=== PATIENT | female | born 1980 | race Caucasian/White ===

== ENCOUNTER 2020-04-19 13:05 | Outpatient (REF) | payer BC, SELFPAY ==
[2020-04-19 13:22] LABS: Abs Immature Grans 0.03 10^3/uL (0.0-0.06); Absolute Basophil Count 0.03 10^3/uL (0.0-0.2); Absolute Eosinophil Count 0.24 10^3/uL (0.0-0.7); Absolute Lymphocyte Count 2.05 10^3/uL (1.2-3.4); Absolute Monocyte Count 0.55 10^3/uL (0.1-0.8); Absolute Neutrophil Count 6.22 10^3/uL (1.2-6.7); Basophils % 0.3; Eosinophils % 2.6; HCT 42.5 % (36.0-46.0); HGB 13.9 g/dL (11.2-15.7); Immature Grans % 0.3; Lymphocytes % 22.5; MCH 29.5 pg (27.0-33.0); MCHC 32.7 % (32.0-36.0); MCV 90.2 fL (80-95); MPV 10.8 fL (8.0-11.0); Neutrophils % 68.3; Nucleated RBC 0 %; Platelet Count 253 10^3/uL (130-400); RBC 4.71 10^6/uL (3.93-5.22); RDW 13.1 % (11.7-14.6); RDW-SD 42.9 fL; WBC 9.12 10^3/uL (4.4-10.8)
[2020-04-19 13:33] LABS: Calculated LDL 71 mg/dL (<100); Cholesterol 153 mg/dL (<200); Glucose 93 mg/dL (74-106); HDL Cholesterol 58 mg/dL (40-60); TSH (W/Ref FT4) 1.56 uIU/mL (0.36-3.74); Triglyceride 124 mg/dL (<150)
== END 2020-04-19 13:25 ==
LOC: LBN 13:05
PROVIDERS: PCP Family Medicine; Visit Provider Family Medicine
DX: E78.5 Hyperlipidemia, unspecified (principal); E03.9 Hypothyroidism, unspecified; R53.83 Other fatigue; R73.9 Hyperglycemia, unspecified
CPT/HCPCS: 80061; 82947; 84443; 85025

== ENCOUNTER 2020-08-07 16:16 | Outpatient (REF) | payer BC, SELFPAY ==
[2020-08-07 15:08] LABS: TSH (W/Ref FT4) 1.49 uIU/mL (0.36-3.74)
== END 2020-08-07 16:36 ==
LOC: LBN 16:16
PROVIDERS: PCP Family Medicine; Visit Provider Family Medicine
DX: E03.9 Hypothyroidism, unspecified (principal)
CPT/HCPCS: 84443

== ENCOUNTER 2020-08-13 09:57 | Outpatient (CLI) | payer BC, SELFPAY ==
--- NOTE | 2020-09-27 08:54 | W.CARDEVENT ---
Date of service: 09/27/20 Time of Service: 08:54 Cardiac Event Recorder Referring Provider:: Helga Indications:: palps Cardiac Event Note: This is a30-day event recorder ordered for indication of palpitations. ?Patient was in normal sinus rhythm for the majority of the recording with an average heart rate of 79 bpm. ?There were no serious or critical events recorded. ?There were 5 patient triggered events that were associated with sinus rhythm and sinus tachycardia. ?There were no episodes of atrial fibrillation, no pauses greater than 3 seconds and no evidence of high degree heart block.
== END 2020-08-13 10:17 ==
PROVIDERS: PCP Family Medicine; Visit Provider Family Medicine
CPT/HCPCS: 93270

== ENCOUNTER 2020-10-31 00:52 | Outpatient (CLI) | payer BC, SELFPAY ==
--- NOTE | 2020-10-31 12:16 | DI.US_ITS ---
APPROVED REPORT EXAM: Comprehensive 2D, Doppler, and color-flow Echocardiogram Patient Location: Out-Patient Histology Technologist: Rosmery Mcallister RDCS (AE) Indications: SOB, Palpitations Other Information Study Quality: Good Conclusion Left Ventricle : The left ventricle is normal size. The left ventricular systolic function is normal. The left ventricular ejection fraction is within the normal range. There is normal left ventricular wall thickness. There is normal LV segmental wall motion. The left ventricular diastolic function is normal. LVEF is 60%. Right Ventricle : The right ventricle is normal size. The right ventricular systolic function is norm al. Atria : The left atrium size is normal. The right atrium size is normal. Valves: There are no hemodynamically significant valvular lesions. Great Vessels : The aortic root is normal in size. The ascending aorta is mildly dilated. Aortic arch is normal in caliber. IVC is normal in size and collapses >50% with inspiration. Please see remainder of study for further details Wall motion Left Ventricle The left ventricle is normal size. The left ventricular systolic function is normal. The left ventric ular ejection fraction is within the normal range. There is normal left ventricular wall thickness. T here is normal LV segmental wall motion. The left ventricular diastolic function is normal. There is no ventricular septal defect visualized. LVEF is 60%. Right Ventricle The right ventricle is normal size. The right ventricular systolic function is normal. Atria The left atrium size is normal. The right atrium size is normal. The interatrial septum is intact wit h no evidence for an atrial septal defect. Aortic Valve The aortic valve is normal in structure. Aortic valve is trileaflet. There is no aortic valvular sten osis. No aortic regurgitation is present. Mitral Valve The mitral valve is normal in structure. No evidence of mitral valve stenosis. Trace mitral regurgita tion. Tricuspid Valve The tricuspid valve is normal in structure. There is no tricuspid valve stenosis. Trace tricuspid reg urgitation. Pulmonic Valve The pulmonary valve is normal in structure. There is no pulmonic valvular stenosis. Trace pulmonic re gurgitation. Great Vessels The aortic root is normal in size. The ascending aorta is mildly dilated. Aortic arch is normal in ca liber. IVC is normal in size and collapses >50% with inspiration. Pericardium There is no pericardial effusion. 2D Dimensions IVSD d PLAX 0.79 cm F: 0.6-1.0 LV Vol A2C d MOD 105.6 mL LVPW d PLAX 0.80 cm F: 0.6 - 1.0 LV Vol A4C d MOD 149.7 mL LVID d PLAX 4.97 cm F: 3.8 - 5.2 LA vol/ BSA A2C s A-L 20.7 mL/m2 LVDs 3.25 cm F: 2.2 - 3.5 LA vol/ BSA A4C s A-L 23.5 mL/m2 Ao Root d 3.55 cm F: 2.7 - 3.3 LA Vol/ BSA Biplane s A-L 23.3 mL/m2 RA Area A4C 11.89 cm2 LA Area A4C s MOD 18.43 cm2 RA Vol/ BSA A4C s A-L 11.5 mL/m2 LA Area A2C s MOD 16.37 cm2 Ao Asc Diam d 3.73 cm F: 2.3 - 3.1 LV EF A4C MOD 58.6 % LV EF Teichholz 63.3 % LV EF A2C MOD 61.7 % LVEF (Salguero's) 60.28 % F: 54 - 74 LV EF Biplane MOD 60.3 % LV Volume 91.21 mL F: 46 - 106 SV 76.02 mL LV Volume Index 40.71 mL/m2 F: 29 - 61 SV Index 33.95 mL/m2 LV Vol Biplane MOD 126.1 mL FS 34.40 % M-Mode TAPSE 2.77 cm (M/F) >1.7 LV Diastology MV E' medial 0.112 (>0.07 m/s) E/A Ratio 1.3 LV E/e MED 8.25 (<14) MV E Vmax 0.93 (0.4-1.3 m/s) MV E' lateral 0.133 (>0.1 m/s) MV A Vmax 0.70 (0.4-1.3 m/s) LV E/e LAT 7.00 (<14) MV E/A Ratio 1.32 MV E/E' medial 8.28 MV E/E' lateral 7.00 Aortic Valve LVOT Area 3.88 cm2 AoV Area Vmax 1.85 cm2 LVOT Vmax 0.91 m/s AoV Area/ BSA (Vmax) 0.83 cm2/m2 LVOT Mean Clay. 0.60 m/s JEROMY Mean Clay. 1.84 cm2 LVOT Peak Grad 3.3 mmHg JEROMY Mean Clay. Index 0.82 cm2/m2 LVOT Mean Grad 1.7 mmHg LVOT VTI 0.196 m LVOT Diam s 2.20 cm AoV Vmax 1.90 m/s Velocity Ratio 0.47 AoV Mean Clay. 1.26 m/s AoV Peak Grad 14.5 mmHg LVOT SV 76.08 mL AoV Mean Grad 7.2 mmHg AoV VTI 0.366 m AoV Area VTI 2.08 cm2 AoV Area/ BSA (VTI) 0.93 cm/m2 Mitral Valve MV DT 217 (160-240 msec) MV PHT 63 msec MV Area PHT 3.50 cm2 MV VTI 0.274 m MV Area VTI 2.78 (4.0-6.0 cm2) Pulmonary Valve PV Vmax 1.03 (0.5-1.5 m/s) RVOT Peak Gr. 2.46 mmHg PV Peak Grad 4.3 mmHg RVOT Mean Gr. 1.25 mmHg PV Mean Grad 2.3 mmHg RVOT VTI 0.161 m PV VTI 0.201 m RVOT Vmax 0.78 m/s Tricuspid Valve TR Peak Grad 14.9 mmHg TR Vmax 1.93 m/s RA Pressure 3.00 mmHg RVSP (TR) 17.9 mmHg
== END 2020-10-31 01:12 ==
PROVIDERS: PCP Family Medicine; Visit Provider Family Medicine
DX: R00.2 Palpitations (principal); R06.02 Shortness of breath; I77.810 Thoracic aortic ectasia
CPT/HCPCS: 93306

== ENCOUNTER 2020-11-19 11:37 | Outpatient (CLI) | payer BC, SELFPAY ==
--- NOTE | 2020-11-19 11:15 | DI.RAD_ITS ---
EXAM: XR SHOULDER RT COMPLETE 2+V CLINICAL HISTORY: right shouider pain. TECHNIQUE: 2D digital imaging was performed. COMPARISON: No exams were available for comparison FINDINGS: BONES: No acute fracture is present. No bony destructive lesion is seen. JOINTS: No dislocation present. SOFT TISSUE: Normal. IMPRESSION: Unremarkable radiographs of the right shoulder. DATA REPOSITORY: RADIATION DOSE DELIVERED:
== END 2020-11-19 11:38 | disposition home or self-care (01) ==
LOC: DIORS 11:37
PROVIDERS: PCP Family Medicine; Referring Provider Family Medicine; Visit Provider Student in an Organized Health Care Education/Training Program
DX: M25.511 Pain in right shoulder (principal)
CPT/HCPCS: 73030

== ENCOUNTER 2020-12-10 01:49 | Outpatient (CLI) | payer BC, SELFPAY ==
--- NOTE | 2020-12-10 08:35 | DI.MRI_ITS ---
Exam(s) MR UPPER JOINT RT WO EXAM: MR UPPER JOINT RT WO CLINICAL HISTORY: R SHOULDER PAIN,BICEPS TENDINITIS,RT ROTATOR CUFF TENDINITIS,M75.21,M75.81. TECHNIQUE: Multiplanar multisequence MRI was performed. COMPARISON: Plain films dated 19 November 2020 FINDINGS: Exam is somewhat limited by patient body habitus. BONES: There is no fracture or contusion pattern. JOINTS: The acromioclavicular joint shows minimal spurring.. The glenohumeral joint is normal. TENDONS: Supraspinatus: Unremarkable. Infraspinatus: Normal thickness. Some high signal within the fibers could indicate partial tear vers us tendonitis. Subscapularis: Unremarkable. Teres Minor: Unremarkable. Biceps and [place]: Unremarkable. MUSCLES: Unremarkable. GLENOID LABRUM: Unremarkable on this noncontrast examination. SOFT TISSUES: Unremarkable. LIGAMENTS: Unremarkable. OTHER: Subacromial and subdeltoid bursae are unremarkable. IMPRESSION: Tendinitis versus partial tear of the infraspinatus tendon. DATA REPOSITORY:
== END 2020-12-10 02:09 ==
PROVIDERS: PCP Family Medicine; Visit Provider Student in an Organized Health Care Education/Training Program
DX: M75.21 Bicipital tendinitis, right shoulder (principal); M75.81 Other shoulder lesions, right shoulder
CPT/HCPCS: 73221

== ENCOUNTER 2022-03-04 19:00 | Outpatient (REF) | payer BC, SELFPAY | END 2022-03-04 19:01 | disposition home or self-care (01) | LOC: LBN 19:00 | PROVIDERS: PCP Family Medicine; Visit Provider Nurse Practitioner Family | DX: J02.9 Acute pharyngitis, unspecified (principal) | CPT/HCPCS: 87070 ==

== ENCOUNTER 2022-08-13 08:57 | Outpatient (REF) | payer BC, SELFPAY ==
--- NOTE | 2022-08-13 08:45 | PAPFT_PTH ---
PATIENT: Pili Oscar LOC: [facility] U#:[id number] AGE/SX: 41/F ROOM: RE08/13/[address]: Nuno Coe MD : [id number] BED: DIS: 08/13/2022 SPEC #: [id number] RECD: 08/13/22 12:57 STATUS: JULIETA RESunita #: [id number] MARIBELL: 08/13/22 08:[address]: Nuno Coe [facility]PT[facility] Cytology RECD BY: Rosana Barakat Tissues: 1 - CX/ENDOCX FOR PAP SMEARS Procedures: PAP THIN PREP/UVM Screening HPV DNA PROBE Comments: [id number]
== END 2022-08-13 08:58 | disposition home or self-care (01) ==
LOC: LBN 08:57
PROVIDERS: PCP Family Medicine; Visit Provider Family Medicine
DX: Z12.4 Encounter for screening for malignant neoplasm of cervix (principal); Z11.51 Encounter for screening for human papillomavirus (HPV)
CPT/HCPCS: 88142; 87624

== ENCOUNTER 2022-08-17 01:45 | Outpatient (CLI) | payer BC, SELFPAY ==
--- NOTE | 2022-08-17 08:00 | DI.MAMMO_ITS ---
Exam(s) MAMMO SCREENING EXAM: MAMMO SCREENING CLINICAL HISTORY: screening,Z12.39 TECHNIQUE: Bilateral full field digital CC and MLO mammographic images were obtained with 3D tomosyn thesis and utilizing computer aided detection (CAD). COMPARISON: None. FINDINGS: Masses/Architectural Distortion: None seen. Microcalcifications: No suspicious pleomorphic-type are seen. Skin Thickening/Nipple Retraction: None. IMPRESSION: 1. No significant interval change with no specific features of malignancy noted. 2. Unless there is more urgent need, screening mammography is recommended, as per [employer] guidelines. BI-RADS Category 1 - Negative Breast Density - Category B - Scattered areas of fibroglandular density A negative radiographic report should not delay biopsy if a dominant or clinically suspicious mass is present. Up to ten percent of cancers are not identified on mammography. A negative report may reinforce clinical impression. Adenosis and dense breasts may obscure an underlying neoplasm. False positive reports average 6 to 10%. Patient will receive a letter notifying them of these results.
== END 2022-08-17 02:05 ==
LOC: DI 01:45
PROVIDERS: PCP Family Medicine; Visit Provider Family Medicine
DX: Z12.31 Encounter for screening mammogram for malignant neoplasm of breast (principal); R92.8 Other abnormal and inconclusive findings on diagnostic imaging of breast
CPT/HCPCS: 77063; 77067

== ENCOUNTER 2022-08-17 16:16 | Outpatient (CLI) | payer BC, SELFPAY ==
[2022-08-17 16:46] LABS: Calculated LDL 61 mg/dL (<100); Cholesterol 146 mg/dL (<200); Glucose 96 mg/dL (74-106); HDL Cholesterol 45 mg/dL (40-60); TSH (W/Ref FT4) 2.37 uIU/mL (0.36-3.74); Triglyceride 203 mg/dL (<150)
[2022-08-18 18:44] LABS: FSH 5.1 mIU/mL (See Note)
== END 2022-08-17 16:17 | disposition home or self-care (01) ==
LOC: LBO 16:17
PROVIDERS: PCP Family Medicine; Visit Provider Family Medicine
DX: N64.4 Mastodynia (principal); E03.9 Hypothyroidism, unspecified; E78.5 Hyperlipidemia, unspecified; R73.9 Hyperglycemia, unspecified
CPT/HCPCS: 36415; 80061; 82947; 83001; 83002; 84443

== ENCOUNTER 2022-08-29 05:47 | Emergency (ER) | payer BC, SELFPAY ==
[2022-08-29 05:50] VITALS: BP 168/106; PULSE 109; RESP 20; TEMP 36.7; O2SAT 100
[2022-08-29] MEDS: Acetaminophen 500 MG TAB 1000 MG PO (06:05)
[2022-08-29] MEDS: Dexamethasone 10 MG/ML VIAL IM (06:06)
[2022-08-29] MEDS: Ketorolac 30 MG/ML VIAL IM (06:07)
--- NOTE | 2022-08-29 06:13 | ED.GENADUL_ITS ---
Discharge Plan Disposition Patient Disposition: Home Condition: Good Discharge Details Chief Complaint: ThroatFB Clinical Impression: Laryngitis Primary Care Provider: Nuno Coe ED Provider: Onel Pisano Discharge Instructions Instructions: Laryngitis (ED) Additional Instructions: At this time your strep test is negative. Your symptoms are likely from a virus. You have irritation and inflammation of your vocal cords causing laryngitis. Please take 800 mg of Motrin every 6 hours, and 1000 mg of Tylenol every 6 hours. These are the maximum doses. Do this for the next 24 to 48 hours. This will help in the inflammation and pain in your throat. Stay well- hydrated and drink plenty of fluids. If you notice any worsening of your symptoms, or any new symptoms such as vomiting, diarrhea, fever, chills, shortness of breath, chest pain, numbness, weakness, or fainting , please return immediately to the emergency department for reevaluation. Please follow up with your primary care provider as soon as possible for reassessment and reevaluation. As always, it was a pleasure participating in your medical care today. Stand Alone Forms: Work Release Referrals: Nuno Coe MD [Primary Care Provider] - Medical Decision Making This is a 41-year-old female who presents today for evaluation of sore throat. Patient states that it is been going on since last night. She woke up this morning and she had pain with swallowing. She is able to control her secretions well including drink. No gagging. She denies fever. She has not taken any NSAIDs today. Pain is made worse with swallowing. Improved by nothing. She also admits to difficulty talking, as this makes her throat more sore. M demonstrates a well-appearing female, no stridor, no difficulty controlling secretions. Tonsils are minimally enlarged. No signs of respiratory distress whatsoever. Symptoms appear clinically consistent with mild laryngitis. Will give Toradol, Decadron, and Tylenol. Strep test is negative. No indication for antibiotics at this time. Patient appears notably stable. Symptoms inconsistent clinically at this time with retropharyngeal abscess, airway compromise, peritonsillar abscess, or severe tonsillitis. I have extensively reviewed the treatment plan and discharge instructions with the patient and their family. I have addressed all patient concerns at this time. The patient and family was made aware of what symptoms to monitor for that would warrant a return to the emergency department. Discussed the plan with the patient and family, they demonstrate verbal understanding and agreement with our assessment and plan at this time. The documentation in this chart was dictated using [employer] dictation software. Please excuse any dictation errors. HPI General Date/Time Provider Initiated Documentation: 08/29/22 05:48 . HPI Narrative: This is a 41-year-old female who presents today for evaluation of sore throat. Patient states that it is been going on since last night. She woke up this morning and she had pain with swallowing. She is able to control her secretions well including drink. No gagging. She denies fever. She has not taken any NSAIDs today. Pain is made worse with swallowing. Improved by nothing. She also admits to difficulty talking, as this makes her throat more sore. Related Data Allergies Allergy/AdvReac Type Severity Reaction Status Date / Time venlafaxine [From Effexor] AdvReac Severe INCREASED Verified 08/13/22 08:19 MIGRAINES General Stated Complaint: ThroatFB STACY: 4 Review of Systems All systems reviewed & are unremarkable except as noted in HPI and below PFSH All Active Problems (Updated 08/29/22 @ 06:18 by Onel Pisano DO) Laryngitis (Acute) Breast tenderness (Acute) Fissure in ano (Acute) Morbid obesity (Acute) discussed bariatric procedures to help Anxiety (Chronic) Medical History Biceps tendinitis of right shoulder Elevated blood pressure reading Fatigue Headache will try meds and refer to Dariusz, our behavioral health specialist Insomnia Palpitations with history of ectopic (06/02/11) Right rotator cuff tendonitis Shoulder pain, right Vaginal discharge (06/12/15) Surgical History , Ectopic Family History Mother Hyperlipidemia Father , 62 No problems noted. Sister Hyperlipidemia Brother Hyperlipidemia Brother Hyperlipidemia Son No problems noted. Daughter No problems noted. Maternal Grandfather , 81 No problems noted. Paternal Grandfather , 42 Heart attack Maternal Grandmother , 79 No problems noted. Paternal Grandmother , 68 Heart disease Social History Smoking/Tobacco Use Status: Former Tobacco Use Smokeless tobacco user: chewing tobacco Second Hand Exposure: Yes Smoking risk assessment performed?: Yes Alcohol Intake: current Alcohol Intake frequency: a few times a month Alcohol type: beer Drug use: Never Substance use type: does not use Caregiver/Support person: No Household members: spouse and children Housing: house Communication Needs: None Do you need help understanding health information?: Never Pets and animals: Yes Pets and animals: cat(s) and dog(s) Sexually active: Yes Do you think of yourself as: straight/heterosexual Current gender identity: female What is your relationship status?: How often do you talk on the phone with friends or family?: three or more times per week How often do you get together with friends or relatives?: twice per week How often do you attend hoahaoism or baptist services?: decline to answer Do you belong to any clubs or organized social groups?: no Panel score (0-1 are the most socially isolated patients): 2 What type of physical activity do you participate in: walking Duration: 45-60 minutes/day Frequency: daily Nikole/Baptist: No preference Special nikole needs: No Seatbelt use: always Helmet use: Yes Helmet use: always Drive intox or ride w/intox 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 3.ENT: Atraumatic external nose and ears. Moist MM. Neck: Symmetric, trachea midline, No thyromegaly. Mild erythema and enlargement of the tonsils, tonsil grading is a 2+ positioning. No evidence of peritonsillar abscess, airway compromise, stridor, or lesions. No swelling in the neck. No evidence of Ludewig's angina. 4.CVS: +S1/S2, No murmurs or gallops. Peripheral pulses 2+ and equal in all extremities. Brisk capillary refill in all extremities. 5.RESP: Unlabored respiratory effort. Clear to auscultation bilaterally. No wheezes rales or rhonchi 6.GI: Soft, Nontender/Nondistended, No hepatosplenomegaly. No guarding or rebound. 7.MSK: Normocephalic/Atraumatic, Extremities w/o deformity or ttp No cyanosis or clubbing, Normal movement of all extremities 8.Skin: Warm, Dry. No rashes or lesions. 9.Neuro: powerhouse engineer II-XII grossly intact. Sensation grossly intact, no focal neurologic deficits. 10.Psych: (AAO) x3. Appropriate mood and affect Course Vital Signs Vital signs: Vital Signs Temperature 36.7 C 08/29/22 05:50 Pulse 109 H 08/29/22 05:50 Respiratory Rate 20 08/29/22 05:50 Blood Pressure 168/106 H 08/29/22 05:50 Pulse Oximetry 100 08/29/22 05:50 Temperature 36.7 C 08/29/22 05:50 Temperature Source Oral 08/29/22 05:50 Pulse 109 H 08/29/22 05:50 Respiratory Rate 20 08/29/22 05:50 Respiratory Effort 08/29/22 05:59 Respiratory Pattern Normal 08/29/22 05:59 Blood Pressure 168/106 H 08/29/22 05:50 Blood Pressure Position Sitting 08/29/22 05:50 Pulse Oximetry 100 08/29/22 05:50 Oxygen Delivery Method Room Air 08/29/22 05:50 Oxygen Flow Rate 0 08/29/22 05:50 End Tidal Co2 9 08/29/22 05:50 Lab/Test Results Lab/Test Results: 08/29/22 06:05 Pharynx Group A Streptococcus Culture - Pending POC Strep Test-KATHERYN(Rapid) Start: 08/29/22 05:56 Freq: .Rapid Strep Test Status: Active Protocol: Document 08/29/22 06:05 N.SCRD (Rec: 08/29/22 06:05 N.SCRD [id number]) Strep test-KATHERYN(Rapid)-POC POC-Strep test-KATHERYN (Rapid) Negative POC-Strep test-KATHERYN (Rapid) Negative
[2022-08-29 06:28] VITALS: BP 164/106; PULSE 98
== END 2022-08-29 06:26 | disposition home or self-care (01) ==
PROVIDERS: Emergency Provider Student in an Organized Health Care Education/Training Program; PCP Family Medicine
DX: J04.0 Acute laryngitis (principal)
CPT/HCPCS: 96372; 99284; 87081; J1100; J1885

== ENCOUNTER 2024-05-10 02:25 | Outpatient (CLI) | payer BC, SELFPAY ==
--- NOTE | 2024-05-10 07:45 | DI.MAMMO_ITS ---
Exam(s) MAMMO SCREENING EXAM: MAMMO SCREENING CLINICAL HISTORY: screening,Z12.39 TECHNIQUE: Bilateral full field digital CC and MLO mammographic images were obtained with 3D tomosyn thesis and utilizing computer aided detection (CAD). COMPARISON: Available for comparison. FINDINGS: Masses/Architectural Distortion: None seen. Microcalcifications: No suspicious pleomorphic-type are seen. Skin Thickening/Nipple Retraction: None. IMPRESSION: 1. No significant interval change with no specific features of malignancy noted. 2. Unless there is more urgent need, screening mammography is recommended, as per [employer] guidelines. BI-RADS Category 1 - Negative Breast Density - Category B - Scattered areas of fibroglandular density Breast density category C or D implies that the patient has dense breast tissue. Dense breast tissue is very common and is not abnormal but dense breast tissue can make it harder to find cancer on a ma mmogram. Also, dense breast tissue may increase their breast cancer risk. This information about the result of the mammogram report was provided to the patient to raise their awareness. Use this report when you speak with the patient about their risks for breast cancer, which includes their family hist ory. At that time, you may recommend for more screening tests (Ultrasound or MRI) as they might be us eful based on their risk. A negative radiographic report should not delay biopsy if a dominant or clinically suspicious mass is present. Up to ten percent of cancers are not identified on mammography. A negative report may reinforce clinical impression. Adenosis and dense breasts may obscure an underlying neoplasm. False positive reports average 6 to 10%. Patient will receive a letter notifying them of these results.
== END 2024-05-10 02:45 ==
LOC: DI 02:25
PROVIDERS: PCP Family Medicine; Visit Provider Family Medicine
DX: Z12.31 Encounter for screening mammogram for malignant neoplasm of breast (principal)
CPT/HCPCS: 77063; 77067